=== PATIENT | female | born 1970 ===

== ENCOUNTER 2024-06-29 15:40 | Inpatient (IN) | payer OTHER ==
[~2024-06-29] VITALS: Ht 165.1 cm; Wt 67.0 kg
[2024-06-29] MEDS ORDERED: OMEG100014 PO (15:55)
[2024-06-29] MEDS ORDERED: DOCU-385 PO (15:55)
[2024-06-29] MEDS ORDERED: OMEP20 PO (15:55)
[2024-06-29] MEDS ORDERED: FURO20 PO (15:55)
[2024-06-29] MEDS ORDERED: QUET200T PO (15:55)
[2024-06-29] MEDS ORDERED: LORA-1000 PO (15:55)
[2024-06-29] MEDS ORDERED: HALO5TAB23 PO (15:55)
[2024-06-29] MEDS ORDERED: FENO160T75 PO (15:55)
[2024-06-29] MEDS ORDERED: METO25 PO (15:55)
[2024-06-29] MEDS ORDERED: FLUP25VI5 IM (15:55)
[2024-06-29] MEDS ORDERED: HYDR50CA7 PO (15:55)
[2024-06-29] MEDS ORDERED: LURA80TA2 PO (15:55)
[2024-06-29] MEDS ORDERED: HALO10TA21 PO (15:55)
[2024-06-29] MEDS ORDERED: BENZ-247 PO (15:55)
[2024-06-29] MEDS ORDERED: ATEN-73 PO (15:55)
[2024-06-29] MEDS ORDERED: POTA-206 PO (15:55)
[2024-06-29 16:29] LABS: BASOPHILS % (AUTO) 0.5 % (0.0-2.0); EOSINOPHILS % (AUTO) 0.1 % (1.0-6.0); HEMATOCRIT 29.1 % (36-46); HEMOGLOBIN 9.5 g/dL (12.0-16.0); LYMPHOCYTES % (AUTO) 18.5 % (22.0-44.0); MEAN CORPUSCULAR HEMOGLOBIN 25.1 pg (26.0-34.0); MEAN CORPUSCULAR HGB CONC 32.9 G/dL (31.0-37.0); MEAN CORPUSCULAR VOLUME 76 fL (80-100); MONOCYTES # (AUTO) 0.6 K/uL (0.1-1.0); MONOCYTES % (AUTO) 10.3 % (2.0-9.0); NEUTROPHILS # (AUTO) 3.9 K/uL (1.8-7.7); NEUTROPHILS % (AUTO) 70.6 % (40.0-70.0); PLATELET COUNT (AUTO) 221 K/uL (150-450); RED BLOOD CELL COUNT(AUTO) 3.81 MIL/uL (4.00-5.20); RED CELL DISTRIBUTION WIDTH 13.2 % (11.5-14.5); WHITE BLOOD COUNT (AUTO) 5.5 K/uL (4.5-11.0)
[2024-06-29 16:45] LABS: ALBUMIN 2.5 g/dL (3.4-5.0); BILIRUBIN,TOTAL 0.6 mg/dL (0.1-1.0); CREATININE 1.56 mg/dL (0.60-1.30); TOTAL PROTEIN, SERUM 6.1 g/dL (6.4-8.2)
[2024-06-29 16:47] LABS: TROPONIN I-HIGH SENSITIVITY 7 ng/L (<51)
[2024-06-29 16:59] LABS: POTASSIUM 2.9 mmol/L (3.5-5.1)
[2024-06-29] MEDS: POTASSIUM CHLORIDE 20 MEQ ER TABLET PO ONE (17:23)
[2024-06-29] MEDS ORDERED: LORazepam 2 MG TABLET PO PRN (18:30)
[2024-06-29] MEDS ORDERED: ZOLPIDEM TARTRATE 10 MG TABLET PO PRN (18:30)
[2024-06-29] MEDS ORDERED: QUEtiapine FUMARATE 100 MG TABLET PO PRN (18:30)
[2024-06-29 18:31] LABS: APPEARANCE,URINE CLEAR (CLEAR); BILIRUBIN,URINE NEGATIVE (NEGATIVE); COLOR,URINE LIGHT YELLOW (YELLOW); GLUCOSE, URINE (UA) NEGATIVE (NEGATIVE); KETONES,URINE NEGATIVE (NEGATIVE); LEUKOCYTE ESTERASE ,URINE SMALL (NEGATIVE); NITRATE,URINE NEGATIVE (NEGATIVE); OCCULT BLOOD,URINE NEGATIVE (NEGATIVE); PH,URINE 5.5 (5.0-8.0); PROTEIN,URINE NEGATIVE (NEGATIVE); SPECIFIC GRAVITIY, URINE 1.005 (1.003-1.030); UROBILINOGEN,URINE <=1.0 mg/dL (<=1.0)
[2024-06-29 19:04] LABS: RBC,URINE None Seen /HPF (0-2)
[2024-06-29 19:05] LABS: BACTERIA,URINE Many /HPF (None Seen)
[2024-06-29] MEDS: CefTRIAXone 1 GM/DEXTROSE 50 ML IV ONE (20:00)
[2024-06-29] MEDS ORDERED: ZOLPIDEM TARTRATE 5 MG TABLET PO PRN (21:00)
[2024-06-29] MEDS ORDERED: ONDANSETRON HCL 4 MG/2 ML VIAL IVP PRN (21:00)
[2024-06-29] MEDS ORDERED: BISACODYL 10 MG RECTAL RECTAL SUPPOSITORY PR PRN (21:00)
[2024-06-29] MEDS ORDERED: METOPROLOL TARTRATE 25 MG TABLET PO PRN (21:00)
[2024-06-29] MEDS ORDERED: ACETAMINOPHEN 325 MG TABLET PO PRN (21:00)
[2024-06-29] MEDS: DOCUSATE SODIUM 100 MG CAPSULE PO SCH (21:00)
[2024-06-29] MEDS ORDERED: MAGNESIUM HYDROXIDE SUSPENSION 30 ML UDCUP PO PRN (21:00)
[2024-06-29] MEDS ORDERED: MORPHINE SULFATE 2 MG/ML SYRINGE IVP PRN (21:00)
[2024-06-29] MEDS: POTASSIUM CHL 10 MEQ/WATER 50 ML IV SCH (21:30)
[2024-06-29] MEDS: SODIUM CHLORIDE 0.9% 1,000 ML IV ONE (21:30)
[2024-06-29 23:05] VITALS: BP 123/68; PULSE 86; RESP 19; TEMP 98.3; O2SAT 99
[2024-06-30] MEDS: HEPARIN SODIUM,PORCINE 5,000 UNITS/ML VIAL SQ SCH
[2024-06-30 04:00] VITALS: BP 112/66; PULSE 94; RESP 18; O2SAT 95
[2024-06-30 04:47] VITALS: BP 110/71; PULSE 101; RESP 18; TEMP 98.1; O2SAT 97
[2024-06-30 05:43] LABS: COVID AG,FIA SOURCE NASAL SWAB
[2024-06-30 06:21] LABS: SARS-COV2 (COVID) ANTIGEN,FIA Positive (Negative)
[2024-06-30 06:41] LABS: BASOPHILS % (AUTO) 0.3 % (0.0-2.0); EOSINOPHILS % (AUTO) 0 % (1.0-6.0); HEMATOCRIT 28.8 % (36-46); HEMOGLOBIN 9.5 g/dL (12.0-16.0); LYMPHOCYTES # (AUTO) 1.2 K/uL (1.0-4.8); LYMPHOCYTES % (AUTO) 15.9 % (22.0-44.0); MEAN CORPUSCULAR HEMOGLOBIN 25.3 pg (26.0-34.0); MEAN CORPUSCULAR HGB CONC 33.1 G/dL (31.0-37.0); MEAN CORPUSCULAR VOLUME 77 fL (80-100); MONOCYTES # (AUTO) 0.7 K/uL (0.1-1.0); MONOCYTES % (AUTO) 9.2 % (2.0-9.0); NEUTROPHILS # (AUTO) 5.6 K/uL (1.8-7.7); NEUTROPHILS % (AUTO) 74.6 % (40.0-70.0); PLATELET COUNT (AUTO) 239 K/uL (150-450); RED BLOOD CELL COUNT(AUTO) 3.76 MIL/uL (4.00-5.20); RED CELL DISTRIBUTION WIDTH 13.5 % (11.5-14.5); WHITE BLOOD COUNT (AUTO) 7.5 K/uL (4.5-11.0)
[2024-06-30 07:00] LABS: CALCIUM, TOTAL 8.4 mg/dL (8.8-10.5); CREATININE 1.28 mg/dL (0.60-1.30)
[2024-06-30 08:00] VITALS: BP 112/67; PULSE 93; RESP 18; TEMP 99.3; O2SAT 95
[2024-06-30 08:02] LABS: RBC MORPHOLOGY COMMENT ABNORMAL RBC MORPH
[2024-06-30] MEDS: FENOFIBRATE 160 MG TABLET PO SCH (08:35)
[2024-06-30] MEDS: POTASSIUM CHLORIDE 20 MEQ ER TABLET PO SCH (08:35)
[2024-06-30] MEDS: FUROSEMIDE 20 MG TABLET PO SCH (08:35)
[2024-06-30] MEDS: PANTOPRAZOLE SODIUM 40 MG DR TABLET PO SCH (08:36)
[2024-06-30] MEDS: ATENOLOL 25 MG TABLET PO SCH (09:00)
[2024-06-30 12:00] VITALS: BP 104/68; PULSE 94; RESP 18; TEMP 98.1; O2SAT 94
[2024-06-30 16:00] VITALS: BP 134/61; PULSE 91; RESP 18; TEMP 98.2; O2SAT 94
[2024-06-30] MEDS: LURASIDONE HCL 80 MG TABLET PO SCH (16:00)
[2024-06-30] MEDS: QUEtiapine FUMARATE 200 MG TABLET PO SCH (21:29)
[2024-06-30] MEDS: BENZTROPINE MESYLATE 1 MG TABLET PO SCH (21:29)
[2024-06-30 22:01] VITALS: BP 120/70; PULSE 100; RESP 17; TEMP 99.1; O2SAT 94
[2024-07-01] VITALS (7 sets, daily range): BP systolic 102–127; BP diastolic 61–75; PULSE 87–103; RESP 16–19; TEMP 97.7–99.1; O2SAT 92–96
[2024-07-01 07:38] LABS: BASOPHILS % (AUTO) 0.4 % (0.0-2.0); EOSINOPHILS % (AUTO) 0.2 % (1.0-6.0); HEMATOCRIT 29.8 % (36-46); HEMOGLOBIN 9.9 g/dL (12.0-16.0); LYMPHOCYTES # (AUTO) 1.5 K/uL (1.0-4.8); LYMPHOCYTES % (AUTO) 33.4 % (22.0-44.0); MEAN CORPUSCULAR HEMOGLOBIN 25.4 pg (26.0-34.0); MEAN CORPUSCULAR HGB CONC 33.2 G/dL (31.0-37.0); MEAN CORPUSCULAR VOLUME 76 fL (80-100); MONOCYTES # (AUTO) 0.5 K/uL (0.1-1.0); MONOCYTES % (AUTO) 10.6 % (2.0-9.0); NEUTROPHILS # (AUTO) 2.6 K/uL (1.8-7.7); NEUTROPHILS % (AUTO) 55.4 % (40.0-70.0); PLATELET COUNT (AUTO) 250 K/uL (150-450); RED BLOOD CELL COUNT(AUTO) 3.91 MIL/uL (4.00-5.20); RED CELL DISTRIBUTION WIDTH 13.8 % (11.5-14.5); WHITE BLOOD COUNT (AUTO) 4.6 K/uL (4.5-11.0)
[2024-07-01 07:46] LABS: RBC MORPHOLOGY COMMENT ABNORMAL RBC MORPH
[2024-07-01 07:51] LABS: CALCIUM, TOTAL 9.3 mg/dL (8.8-10.5); CREATININE 1.18 mg/dL (0.60-1.30); POTASSIUM 3.5 mmol/L (3.5-5.1)
[2024-07-02 04:27] VITALS: BP 115/69; PULSE 84; RESP 18; TEMP 98.4; O2SAT 94
[2024-07-02 08:21] LABS: BASOPHILS % (AUTO) 0.9 % (0.0-2.0); EOSINOPHILS % (AUTO) 0.2 % (1.0-6.0); HEMATOCRIT 32.5 % (36-46); HEMOGLOBIN 10.6 g/dL (12.0-16.0); LYMPHOCYTES # (AUTO) 1.9 K/uL (1.0-4.8); MEAN CORPUSCULAR HEMOGLOBIN 25.1 pg (26.0-34.0); MEAN CORPUSCULAR HGB CONC 32.6 G/dL (31.0-37.0); MEAN CORPUSCULAR VOLUME 77 fL (80-100); MONOCYTES # (AUTO) 0.6 K/uL (0.1-1.0); MONOCYTES % (AUTO) 12.4 % (2.0-9.0); NEUTROPHILS # (AUTO) 2.2 K/uL (1.8-7.7); NEUTROPHILS % (AUTO) 46.5 % (40.0-70.0); PLATELET COUNT (AUTO) 271 K/uL (150-450); RED BLOOD CELL COUNT(AUTO) 4.22 MIL/uL (4.00-5.20); RED CELL DISTRIBUTION WIDTH 13.4 % (11.5-14.5); WHITE BLOOD COUNT (AUTO) 4.6 K/uL (4.5-11.0)
[2024-07-02 08:24] LABS: CALCIUM, TOTAL 9.4 mg/dL (8.8-10.5); CREATININE 1.22 mg/dL (0.60-1.30); POTASSIUM 3.5 mmol/L (3.5-5.1)
[2024-07-02 08:29] VITALS: BP 153/78; PULSE 84; RESP 20; TEMP 98.3; O2SAT 92
[2024-07-02] MEDS: FluPHENAZine DECANOATE 25 MG/ML IM SCH (08:46)
[2024-07-02 09:02] LABS: RBC MORPHOLOGY COMMENT ABNORMAL RBC MORPH
[2024-07-02] MEDS ORDERED: DESM0.2T4 PO (11:14)
[2024-07-02] MEDS ORDERED: ALBU18HF12 IH (11:14)
[2024-07-02] MEDS ORDERED: MULT-1366 PO (11:14)
[2024-07-02] MEDS ORDERED: METO-408 PO (11:14)
[2024-07-02 15:53] VITALS: BP 100/60; PULSE 82; RESP 20; TEMP 98.1; O2SAT 92
[2024-07-02] MEDS: ZINC SULFATE 220 MG CAPSULE PO SCH (16:31)
[2024-07-02 19:30] VITALS: BP 96/74; PULSE 89; RESP 19; TEMP 98.2; O2SAT 91
[2024-07-02] MEDS: ASCORBIC ACID 500 MG TABLET PO SCH (21:04)
[2024-07-03 03:59] VITALS: BP 108/69; PULSE 74; RESP 18; TEMP 97.7; O2SAT 96
[2024-07-03 08:00] VITALS: BP 114/72; PULSE 72; RESP 18; TEMP 98.1
[2024-07-03] MEDS: HYDROCODONE/ACETAMINOPHEN 5-325 MG TABLET PO PRN (08:44)
[2024-07-03] MEDS: ATENOLOL 25 MG TABLET PO SCH (08:45)
[2024-07-03] MEDS ORDERED: BENZ-247 PO (10:26)
[2024-07-03] MEDS ORDERED: ATEN-73 PO (10:26)
[2024-07-03 19:40] VITALS: BP 127/53; PULSE 87; RESP 18; TEMP 97.5; O2SAT 96
[2024-07-04 03:58] VITALS: BP 124/78; PULSE 88; RESP 18; TEMP 97.6; O2SAT 95
[2024-07-04 08:04] VITALS: BP 126/68; PULSE 88; RESP 19; TEMP 97.8; O2SAT 96
[2024-07-04] MEDS: LORazepam 1 MG TABLET PO PRN (10:39)
== END 2024-07-04 12:00 | disposition home or self-care (01) | DRG 422 ==
LOC: EMS 15:44 → EDH 21:16 → UNDOADMIN 21:16 → 5S 22:48 → 4E 07-01 23:35
PROVIDERS: ADMIT Internal Medicine; ATTEND Internal Medicine
DX: E86.0 Dehydration (principal); N17.0 Acute kidney failure with tubular necrosis; U07.1 COVID-19; E87.6 Hypokalemia; G90.8 Other disorders of autonomic nervous system; E87.1 Hypo-osmolality and hyponatremia; N39.0 Urinary tract infection, site not specified; I11.0 Hypertensive heart disease with heart failure; K21.9 Gastro-esophageal reflux disease without esophagitis; I50.9 Heart failure, unspecified; E78.5 Hyperlipidemia, unspecified; D64.9 Anemia, unspecified; F20.9 Schizophrenia, unspecified; Z90.49 Acquired absence of other specified parts of digestive tract
CPT/HCPCS: 70450; 71045; 80048; 80053; 81001; 83880; 84484; 85025; 87086; 87186; 93005; 93306; 97162; 99285; G0378; J0696; J1644; J2680; J3480; J7030; 36415-L1; 36415-TC

== ENCOUNTER 2024-07-31 14:24 | Emergency (ER) | payer OTHER ==
[~2024-07-31] VITALS: Ht 160 cm; Wt 75.0 kg
[~2024-07-31 14:24] MED LIST: ALBU18HF12 IH; ATEN-73 PO; BENZ-247 PO; DESM0.2T4 PO; DOCU-385 PO; FENO160T75 PO; FLUP25VI5 IM; FURO20 PO; HALO10TA21 PO; HYDR50CA7 PO; LORA-1000 PO; LURA80TA2 PO; MULT-1366 PO; OMEG100014 PO; OMEP20 PO; POTA-206 PO; QUET200T PO
[2024-07-31 14:36] VITALS: TEMP 98.8
[2024-07-31] MEDS ORDERED: AMOX1TAB15 PO (14:39)
[2024-07-31] MEDS ORDERED: METO-408 PO (14:39)
[2024-07-31] MEDS: SODIUM CHLORIDE 0.9% 1,000 ML IV ONE (15:24)
[2024-07-31 15:35] LABS: BASOPHILS % (AUTO) 0.5 % (0.0-2.0); EOSINOPHILS % (AUTO) 0.1 % (1.0-6.0); HEMATOCRIT 33.3 % (36-46); LYMPHOCYTES # (AUTO) 1.5 K/uL (1.0-4.8); LYMPHOCYTES % (AUTO) 20.2 % (22.0-44.0); MEAN CORPUSCULAR HEMOGLOBIN 25.5 pg (26.0-34.0); MEAN CORPUSCULAR HGB CONC 32.9 G/dL (31.0-37.0); MEAN CORPUSCULAR VOLUME 77 fL (80-100); MONOCYTES # (AUTO) 0.6 K/uL (0.1-1.0); MONOCYTES % (AUTO) 8.4 % (2.0-9.0); NEUTROPHILS # (AUTO) 5.4 K/uL (1.8-7.7); NEUTROPHILS % (AUTO) 70.8 % (40.0-70.0); PLATELET COUNT (AUTO) 232 K/uL (150-450); RED BLOOD CELL COUNT(AUTO) 4.31 MIL/uL (4.00-5.20); RED CELL DISTRIBUTION WIDTH 14.8 % (11.5-14.5); WHITE BLOOD COUNT (AUTO) 7.7 K/uL (4.5-11.0)
[2024-07-31 15:44] LABS: CALCIUM, TOTAL 6.3 mg/dL (8.8-10.5); CREATININE 1.2 mg/dL (0.60-1.30); POTASSIUM 3.3 mmol/L (3.5-5.1)
[2024-07-31 15:52] LABS: TROPONIN I-HIGH SENSITIVITY 9 ng/L (<51)
[2024-07-31 15:57] LABS: ALBUMIN 3.1 g/dL (3.4-5.0); BILIRUBIN,TOTAL 0.5 mg/dL (0.1-1.0); TOTAL PROTEIN, SERUM 5.9 g/dL (6.4-8.2)
[2024-07-31 15:59] LABS: COVID AG,FIA SOURCE NASAL SWAB
[2024-07-31 16:22] LABS: SARS-COV2 (COVID) ANTIGEN,FIA Negative (Negative)
[2024-07-31 16:31] LABS: APPEARANCE,URINE CLEAR (CLEAR); BILIRUBIN,URINE NEGATIVE (NEGATIVE); COLOR,URINE COLORLESS (YELLOW); GLUCOSE, URINE (UA) NEGATIVE (NEGATIVE); KETONES,URINE NEGATIVE (NEGATIVE); LEUKOCYTE ESTERASE ,URINE MODERATE (NEGATIVE); NITRATE,URINE NEGATIVE (NEGATIVE); OCCULT BLOOD,URINE NEGATIVE (NEGATIVE); PROTEIN,URINE NEGATIVE (NEGATIVE); SPECIFIC GRAVITIY, URINE 1.002 (1.003-1.030); UROBILINOGEN,URINE <=1.0 mg/dL (<=1.0)
[2024-07-31 16:44] LABS: BACTERIA,URINE None Seen /HPF (None Seen); RBC,URINE None Seen /HPF (0-2); SQUAMOUS EPITHELIAL CELL,UR None Seen /LPF (None Seen)
[2024-07-31 19:38] VITALS: BP 113/65; PULSE 83; RESP 16; O2SAT 98
== END 2024-08-01 | disposition home or self-care (01) ==
LOC: EMS 14:24
DX: E86.0 Dehydration (principal); N39.0 Urinary tract infection, site not specified; R55 Syncope and collapse; F17.210 Nicotine dependence, cigarettes, uncomplicated; K21.9 Gastro-esophageal reflux disease without esophagitis; Z20.822 Contact with and (suspected) exposure to COVID-19
CPT/HCPCS: 99285; 96360; 71045; 87426; 80053; 81001; 82550; 83880; 84484; 85025; 36415; 87086; 87186; 93005; J7030